=== PATIENT | female | born 1955 | race Caucasian/White ===

== ENCOUNTER 2018-04-15 12:40 | Emergency (ER) | payer MEDICARE, MEDICAID ==
[2018-04-15 12:57] VITALS: BP 153/71
[2018-04-15] MEDS ORDERED: Albuterol/Ipratropium NEB.SOL* Albuterol 2.5 MG/Ipratropium 0.5 MG 3 ML INH ONE (13:15)
--- NOTE | 2018-04-15 13:55 | UC ---
UC General HPI - HPI Summary HPI Summary: Pt with left ear pain, sore throat, cough and wheeze x 5 days. no fevers + chills. Pt has MDI adhas used with little improvement No fever. No analgesia taken. pt has used her MDI a few times with short term relief. No sick contacts No change in appetite no n/v/d. Pt reports some chest discomfort with coughing only. No cp, sob otherwise. Pt's medication list reviewed - History of Current Complaint Chief Complaint: UCRespiratory Stated Complaint: SORE THROAT Time Seen by Provider: 04/15/18 12:56 Hx Obtained From: Patient Hx Last Menstrual Period: NA Onset/Duration: Gradual Onset Pain Intensity: 6 - Allergy/Home Medications Allergies/Adverse Reactions: Allergies Allergy/AdvReac Type Severity Reaction Status Date / Time nitrofurantoin Allergy Unknown Unknown Verified 04/15/18 13:04 [From Macrodantin] Reaction Details aspirin Allergy Hives Verified 04/15/18 13:04 cephalexin Allergy Hives Verified 04/15/18 13:04 clavulanic acid Allergy Hives Verified 04/15/18 13:04 [From Augmentin] erythromycin base Allergy SOB, HIVES Verified 04/15/18 13:04 ibuprofen Allergy Hives Verified 04/15/18 13:04 pregabalin [From Lyrica] Allergy Hives Verified 04/15/18 13:04 Sulfa (Sulfonamide Allergy Hives Verified 04/15/18 13:04 Antibiotics) triamcinolone Allergy Unknown Verified 04/15/18 13:04 Reaction Details CARROTS, CELERY, APPLES Allergy Mild Hives Uncoded 04/15/18 13:04 DIET SWEETNERS Allergy TONGUE Uncoded 04/15/18 13:04 NUMB, HEADACHE Home Medications: Home Medications Acetaminophen TAB* [Tylenol TAB*] 650 mg PO Q8H PRN 04/15/18 [History Confirmed 04/15/18] Albuterol HFA INHALER* [Ventolin HFA Inhaler*] 2 puff INH Q4H PRN 04/15/18 [ History Confirmed 04/15/18] Atorvastatin* [Lipitor*] 80 mg PO DAILY 04/15/18 [History Confirmed 04/15/18] Azelastine 0.15% NASAL(NF) [Astepro 0.15% NASAL (NF)] 1 spray ALT NARE BID 04/15 [History Confirmed 04/15/18] Cetirizine* [ZyrTEC 10 MG TAB*] 10 mg PO DAILY 04/15/18 [History Confirmed 04/15] Ciclopirox/Urea/Camph/Men/Euc [Ciclopirox 8% Treatment Kit] 1 applic TP SEE INSTRUCTIONS 04/15/18 [History Confirmed 04/15/18] Clobetasol 0.05% OINT* 1 applic TOPICAL SEE INSTRUCTIONS 04/15/18 [History Confirmed 04/15/18] Esomeprazole(NF) [NexIUM(NF)] 40 mg PO DAILY 04/15/18 [History Confirmed ] Fluticasone-Salmeterol 250-50* [Advair Diskus 250-50*] 1 puff INH BID 04/15/18 [ History Confirmed 04/15/18] Furosemide TAB* [Lasix TAB*] 80 mg PO DAILY 04/15/18 [History Confirmed 04/15/18 ] Insulin GLARGINE(*) [Lantus(*)] 40 units SUBCUT Q12H 04/15/18 [History Confirmed 04/15/18] Losartan TAB* [Cozaar TAB*] 25 mg PO DAILY 04/15/18 [History Confirmed 04/15/18] Morphine Sulfate [Morphine Sulfate ER] 30 mg PO BID 04/15/18 [History Confirmed 04/15/18] Nystatin CREAM* 1 applic TOPICAL BID 04/15/18 [History Confirmed 04/15/18] Nystatin TOP POWDER* 1 applic TOPICAL BID 04/15/18 [History Confirmed 04/15/18] Oxybutynin XL TAB* [Ditropan XL TAB*] 10 mg PO BEDTIME 04/15/18 [History Confirmed 04/15/18] Pregabalin CAP(*) [Lyrica CAP(*)] 50 mg PO DAILY 04/15/18 [History Confirmed 05/25] Ranitidine TAB (NF) [Zantac TAB (NF)] 300 mg PO BEDTIME 04/15/18 [History Confirmed 04/15/18] SitaGLIPtin (NF) [Januvia (NF)] 100 mg PO DAILY 04/15/18 [History Confirmed 05/25] Zolpidem TAB* [Ambien TAB*] 5 mg PO BEDTIME 04/15/18 [History Confirmed 04/15/18 ] amLODIPine TAB* [Norvasc 5 mg TAB*] 10 mg PO DAILY 04/15/18 [History Confirmed 04/15/18] cloNIDine TAB* [Catapres 0.1 MG TAB*] 0.1 mg PO TID 04/15/18 [History Confirmed 04/15/18] metFORMIN* [Glucophage 500 MG TAB *] 1,000 mg PO BID 04/15/18 [History Confirmed 04/15/18] oxyCODONE TAB* [Roxycodone TAB 5 mg*] 5 mg PO Q8H 04/15/18 [History Confirmed ] oxyCODONE/Acetamin 5/325 MG* [Percocet 5/325 TAB*] 1 tab PO Q8H PRN 04/15/18 [ History Confirmed 04/15/18] tiZANidine TAB* [Zanaflex TAB*] 4 - 8 mg PO TID 04/15/18 [History Confirmed 05/25] PMH/Surg Hx/FS Hx/Imm Hx Previously Healthy: Yes Endocrine History: Diabetes Cardiovascular History: Hypertension Respiratory History: COPD Other History Of: Negative For: HIV, Hepatitis B, Hepatitis C - Surgical History Surgical History: Yes Surgery Procedure, Year, and Place: BILATERAL TUBAL LIGATION,. CHOLECYSTECTOMY. APPENDECTOMY. BACK SURGURY X 6 (with implant), [facility]. LEFT HIP IMPLANT. RIGHT HAND CYSTECTOMY. HYSTERECTOMY, [facility] - Family History Known Family History: Positive: Cardiac Disease, Hypertension, Diabetes, Other - charcot betito tooth Family History: charcot betito tooth - Social History Occupation: Unemployed Lives: With Family Alcohol Use: None Substance Use Type: None Smoking Status (MU): Former Smoker Type: Cigarettes Amount Used/How Often: 1 1/2 PPD Length of Time of Smoking/Using Tobacco: 5 Years When Did the Patient Quit Smoking/Using Tobacco: 2010 Household Exposure Type: Cigarettes - Immunization History Most Recent Influenza Vaccination: 2013 Vaccination Up to Date: Yes Review of Systems Constitutional: Negative ENT: Sore Throat, Ear Ache, Sinus Congestion, Other - TORRES MARTINEZ Respiratory: Cough All Other Systems Reviewed And Are Negative: Yes Physical Exam - Summary Physical Exam Summary: Vital Signs Reviewed: Yes A+Ox3, no distress Eyes: Conjunctiva Clear, RENETTA. EOM intact and full ENT: Pt with TORRES MARTINEZ - Pt with left canal with erythema, edema no drainage TM x 2 clear no fluid TM x 2 clear, mmoist, uvula midline, no exudate, no erythema Neck: Positive: Supple Respiratory: Positive: No respiratory distress, No accessory muscle use scattered wheeze no increased WOB Cardiovascular: RRR nl s1, s2 no m/r CBT <2 sec abd soft + BS nt/nd no guarding, no distension Musculoskeletal Exam: BANKS x 4 without difficulty Strength Intact, ROM Intact Neurological: Positive: Alert, + sensation throughout Psychological: Positive: Normal Response To Family Skin: Positive: no rash, no ecchymosis Triage Information Reviewed: Yes Vital Signs: Initial Vital Signs Temp 97.6 F 04/15/18 12:50 Pulse 85 04/15/18 12:50 Resp 20 04/15/18 12:50 BP 153/71 04/15/18 12:50 Pulse Ox 96 04/15/18 12:50 Re-Evaluation - Re-Evaluation First Eval Change: Improved - wheezing resolved pt states feels better doxy neb cortipsorin return precaution secretion precaution pt comfortable and in agreement with plan pt also with elevated BP - existing dx Course/Dx - Course Course Of Treatment: Pt with wheeze, coarse cough, left ear pain and sore throat. VSS. strep neg. will give neb and reassess. likely doxy - given cough, sputum, smoking, COPD history. will hold CXR pending re-eval after neb - Differential Dx - Multi-Symptom Provider Diagnoses: left otitis externa. bronchtis Discharge - Sign-Out/Discharge Documenting (check all that apply): Patient Departure - Discharge Plan Condition: Stable Disposition: HOME Prescriptions: Ciproflox/Dexameth OTIC.SUSP* [Ciprodex OTIC.SUSP*] 2 drop .SEE ORDER Q6HR #1 btl DOXYcycline CAP(*) [DOXYcycline 100MG CAP(*)] 100 mg PO BID #20 cap predniSONE TAB* [Deltasone TAB*] 50 mg PO DAILY #5 tab Patient Education Materials: Otitis Externa (ED), Acute Bronchitis (ED) Referrals: Chris Aguilar MD [Primary Care Provider] - Additional Instructions: -Take antibiotics exactly as prescribed until gone -Use your albuterol puffer - 2 puffs ever 4 hours for the next 3 days - then as needed - These infections are spread by oral secretions. Do not share eating or drinking utensils. Frequent hand washing is important. Clean items that may get your secretions on them such as cell phones, ipads, computer mouse, television remotes. Once you have been on antbiotics for 2 days, change your pillowcase and your toothbrush - take prednisone as prescribed until gone - use ear drops as prescribed -Stay well hydrated - avoid excess caffeine and all alcohol - eat regular, healthy meals -Contact your doctor to arrange a follow-up appointment this week. Call your doctor, return here or go to the emergency department with any questions or concerns - Billing Disposition and Condition Condition: STABLE Disposition: Home
== END 2018-04-15 14:01 | disposition home or self-care (01) ==
LOC: UCCORT 12:40
DX: H60.92 Unspecified otitis externa, left ear (principal); J40 Bronchitis, not specified as acute or chronic; E11.9 Type 2 diabetes mellitus without complications; Z79.4 Long term (current) use of insulin; Z79.84 Long term (current) use of oral hypoglycemic drugs; I10 Essential (primary) hypertension; J44.9 Chronic obstructive pulmonary disease, unspecified; Z88.6 Allergy status to analgesic agent; Z88.2 Allergy status to sulfonamides; Z88.8 Allergy status to other drugs, medicaments and biological substances; Z88.3 Allergy status to other anti-infective agents; Z87.891 Personal history of nicotine dependence
CPT/HCPCS: 87651; 99212; A9270-GY; G0463

== ENCOUNTER 2018-12-10 08:26 | Emergency (ER) | payer MEDICARE, MEDICAID ==
[2018-12-10 09:12] LABS: Influenza A Molecular NEGATIVE (Negative); Influenza B Molecular NEGATIVE (Negative)
[2018-12-10] MEDS ORDERED: Ipratropium 0.5MG/2.5ML NEB* 0.5 MG/2.5 ML NEB.SOLN INH ONE (09:57)
[2018-12-10] MEDS ORDERED: predniSONE TAB* 20 MG PO ONE (09:57)
[2018-12-10] MEDS ORDERED: Albuterol 2.5 MG/3 ML NEB.SOL* (0.083%) INH ONE (09:57)
--- NOTE | 2018-12-10 10:56 | UC ---
Shortness of Breath HPI - HPI Summary HPI Summary: PATIENT WITH A HISTORY OF INTERSTITIAL LUNG DISEASE, COPD AND ASTHMA ARRIVES COMPLAINING OF SHORTNESS OF BREATH AND WHEEZE THAT HAS WORSENED OVERNIGHT. SUBJECTIVE FEVER AND CHILLS. USE HER NEBULIZER MACHINE WITH SOME MODEST IMPROVEMENT IN SYMPTOMS. - History of Current Complaint Chief Complaint: UCRespiratory Stated Complaint: SOB Time Seen by Provider: 12/10/18 08:54 Hx Obtained From: Patient Hx Last Menstrual Period: NA Onset/Duration: Gradual Onset, Lasting Days - 1 DAY, Still Present Timing: Constant Current Severity: Moderate Dyspnea At: Exertion Aggrevating Factors: Nothing Alleviating Factors: Bronchodilators Associated Signs & Symptoms: Positive: Cough (Nonproductive), Wheezing, Chills - Allergy/Home Medications Allergies/Adverse Reactions: Allergies Allergy/AdvReac Type Severity Reaction Status Date / Time nitrofurantoin Allergy Unknown Unknown Verified 12/10/18 08:45 [From Macrodantin] Reaction Details aspirin Allergy Hives Verified 12/10/18 08:45 cephalexin Allergy Hives Verified 12/10/18 08:45 clavulanic acid Allergy Hives Verified 12/10/18 08:45 [From Augmentin] erythromycin base Allergy SOB, HIVES Verified 12/10/18 08:45 ibuprofen Allergy Hives Verified 12/10/18 08:45 pregabalin [From Lyrica] Allergy Hives Verified 12/10/18 08:45 Sulfa (Sulfonamide Allergy Hives Verified 12/10/18 08:45 Antibiotics) triamcinolone Allergy Unknown Verified 12/10/18 08:45 Reaction Details CARROTS, CELERY, APPLES Allergy Mild Hives Uncoded 12/10/18 08:45 DIET SWEETNERS Allergy TONGUE Uncoded 07/01/18 11:22 NUMB, HEADACHE Home Medications: Home Medications Docusate Sodium [Colace] 100 mg PO DAILY WITH MEAL 12/10/18 [History Confirmed 12/10/18] Enalapril TAB* [Vasotec TAB*] 10 mg PO DAILY 12/10/18 [History Confirmed ] Esomeprazole Magnesium [Nexium 24Hr] 20 mg PO DAILY WITH MEAL 12/10/18 [History Confirmed 12/10/18] Insulin Glargine,Hum.rec.anlog [Basaglar Kwikpen U-100] 100 unit SQ DAILY WITH MEAL 12/10/18 [History Confirmed 12/10/18] Magnesium 30 mg PO DAILY WITH MEAL 12/10/18 [History Confirmed 12/10/18] Morphine TAB (NF) [Morphine 30 MG TAB (NF)] 30 mg PO Q6H PRN 12/10/18 [History Confirmed 12/10/18] Oxycodone HCl/Acetaminophen [Oxycodon-Acetaminophen 2.5-325] 1 tab PO DAILY WITH MEAL 12/10/18 [History Confirmed 12/10/18] Umeclidinium 62.5 MDI(NF) [Incruse ELLIPTA MDI (NF)] 1 inh INH DAILY WITH MEAL 12/10/18 [History Confirmed 12/10/18] diphenhydrAMINE HCl [Benadryl Allergy] 25 mg PO DAILY WITH MEAL 12/10/18 [ History Confirmed 12/10/18] PMH/Surg Hx/FS Hx/Imm Hx - Additional Past Medical History Additional PMH: DONAL, [id number] Endocrine History: Diabetes Cardiovascular History: Hypertension Respiratory History: COPD, Asthma Other Respiratory History: INTERSTITIAL LUNG DISEASE Other History Of: Negative For: HIV, Hepatitis B, Hepatitis C - Surgical History Surgical History: Yes Surgery Procedure, Year, and Place: BILATERAL TUBAL LIGATION,. CHOLECYSTECTOMY. APPENDECTOMY. BACK SURGURY X 6 (with implant), [facility]. LEFT HIP IMPLANT. RIGHT HAND CYSTECTOMY. HYSTERECTOMY, [facility] - Family History Known Family History: Positive: Cardiac Disease, Hypertension, Diabetes, Other - charcot betito tooth Family History: charcot betito tooth - Social History Alcohol Use: None Substance Use Type: None Smoking Status (MU): Former Smoker Type: Cigarettes Amount Used/How Often: 1 1/2 PPD Length of Time of Smoking/Using Tobacco: 5 Years When Did the Patient Quit Smoking/Using Tobacco: 2010 Household Exposure Type: Cigarettes - Immunization History Most Recent Influenza Vaccination: 2013 Vaccination Up to Date: Yes Review of Systems All Other Systems Reviewed And Are Negative: Yes Constitutional: Positive: Fever, Chills, Fatigue Respiratory: Positive: Shortness Of Breath, Cough, Other - WHEEZE Cardiovascular: Positive: Negative Gastrointestinal: Positive: Negative Physical Exam Triage Information Reviewed: Yes Appearance: Well-Appearing, No Pain Distress, Well-Nourished Vital Signs: Initial Vital Signs Temp 98.9 F 12/10/18 08:32 Pulse 109 12/10/18 08:32 Resp 22 12/10/18 08:32 BP 191/85 12/10/18 08:32 Pulse Ox 95 12/10/18 08:32 Laboratory Tests 12/10/18 09:00 Influenza A (Rapid) Negative Influenza B (Rapid) Negative Vital Signs Reviewed: Yes Eyes: Positive: Conjunctiva Clear ENT: Positive: Hearing grossly normal, Pharynx normal, TMs normal Neck: Positive: Supple, Nontender, No Lymphadenopathy Respiratory Exam: Normal Cardiovascular: Positive: Tachycardia Abdomen Description: Positive: Soft Musculoskeletal: Positive: No Edema Neurological: Positive: Alert Psychological: Positive: Age Appropriate Behavior Skin: Negative: Rashes Diagnostics - Radiology CXR Radiology Interpretation Completed By: Radiologist Summary of Radiographic Findings: DIFFUSE PROMINENCE OF THE INTERSTITIAL MARKINGS, UNCHANGED SUGGESTIVE OF CHRONIC INTERSTITIAL LUNG DISEASE LESS LIKELY INTERSTITIAL PULMONARY EDEMA. Re-Evaluation - Re-Evaluation First Eval Re-Evaluation Time: 10:35 - FEELS BETTER AFTER 60MG PREDNISONE AND ALB/IPR NEB Change: Improved Shortness of Breath Dx - Differential Dx/Diagnosis Provider Diagnosis: COPD exacerbation Discharge - Sign-Out/Discharge Documenting (check all that apply): Patient Departure All imaging exams completed and their final reports reviewed: Yes - Discharge Plan Condition: Stable Disposition: HOME Prescriptions: Azithromycin 500 mg PO DAILY #5 tab predniSONE TAB* [Deltasone TAB*] 50 mg PO DAILY #4 tab Patient Education Materials: COPD (Chronic Obstructive Pulmonary Disease) (ED) Referrals: Chris Aguilar MD [Primary Care Provider] - If Needed Additional Instructions: CHEST X-RAY SHOWS CHANGES CONSISTENT WITH INTERSTITIAL LUNG DISEASE BUT IS STABLE FROM PREVIOUS. NO ACUTE DISEASE. FLU SWAB NEGATIVE. YOU FELT BETTER AFTER A DUONEB TREATMENT AND 60 MG OF PREDNISONE. CONTINUE TO USE YOUR NEBULIZER AT HOME PRESCRIBED. WILL CONTINUE PREDNISONE FOR ANOTHER 4 DAYS. AZITHROMYCIN TO COVER FOR ANY INFECTIOUS COMPONENT. SEEK FOLLOW-UP IF YOU'RE NOT IMPROVING EXPECTED. GO TO THE ER WITHOUT FAIL IF YOU DEVELOP WORSENING SHORTNESS OF BREATH, FEVER, CHEST PAIN, NAUSEA, SWEATS, DIZZINESS OR ANY OTHER CONCERNING SYMPTOMS. - Billing Disposition and Condition Condition: STABLE Disposition: Home
[2018-12-10 11:15] VITALS: BP 150/62
== END 2018-12-10 11:14 | disposition home or self-care (01) ==
LOC: UCEAST 08:26
DX: J44.1 Chronic obstructive pulmonary disease with (acute) exacerbation (principal); E11.9 Type 2 diabetes mellitus without complications; I10 Essential (primary) hypertension; J84.9 Interstitial pulmonary disease, unspecified; Z88.1 Allergy status to other antibiotic agents; Z88.8 Allergy status to other drugs, medicaments and biological substances; Z87.891 Personal history of nicotine dependence; Z88.2 Allergy status to sulfonamides; Z91.02 Food additives allergy status; Z79.4 Long term (current) use of insulin; Z88.0 Allergy status to penicillin; Z79.899 Other long term (current) drug therapy
CPT/HCPCS: 71046; 99213; G0463; J7512

== ENCOUNTER 2019-01-16 10:43 | Emergency (ER) | payer MEDICARE, MEDICAID ==
--- NOTE | 2019-01-16 10:58 | ED ---
Lower Extremity - HPI Summary HPI Summary: This patient is a 63 year old female presenting to [facility] with a chief complaint of left leg pain since 3 days ago. Patient states that she twisted it 3 days ago. The pain starts at the knee and radiates down the left leg. The pain is rated 10/10 in severity. Symptoms aggravated by nothing. Symptoms alleviated by nothing. Patient additionally reports increased SOB since this morning. - History of Current Complaint Chief Complaint: EDShortnessOfBreath Stated Complaint: PROBLEM WITH KNEE AND SOB PER PT Time Seen by Provider: 01/16/19 10:50 Hx Obtained From: Patient Hx Last Menstrual Period: NA Mechanism Of Injury: Twisted Onset/Duration: Days Severity Currently: Severe Pain Intensity: 10 Pain Scale Used: 0-10 Numeric Timing: Constant Location: Is Discrete @ - left lower leg Associated Signs And Symptoms: Positive: Other - SOB Aggravating Factor(s): Nothing Alleviating Factor(s): Nothing - Allergies/Home Medications Allergies/Adverse Reactions: Allergies Allergy/AdvReac Type Severity Reaction Status Date / Time nitrofurantoin Allergy Unknown Unknown Verified 01/16/19 10:48 [From Macrodantin] Reaction Details aspirin Allergy Hives Verified 01/16/19 10:48 cephalexin Allergy Hives Verified 01/16/19 10:48 clavulanic acid Allergy Hives Verified 01/16/19 10:48 [From Augmentin] erythromycin base Allergy SOB, HIVES Verified 01/16/19 10:48 ibuprofen Allergy Hives Verified 01/16/19 10:48 pregabalin [From Lyrica] Allergy Hives Verified 01/16/19 10:48 Sulfa (Sulfonamide Allergy Hives Verified 01/16/19 10:48 Antibiotics) triamcinolone Allergy Unknown Verified 01/16/19 10:48 Reaction Details CARROTS, CELERY, APPLES Allergy Mild Hives Uncoded 12/10/18 08:45 DIET SWEETNERS Allergy TONGUE Uncoded 07/01/18 11:22 NUMB, HEADACHE Home Medications: Home Medications Albuterol 2.5MG/3ML (0.083%)* [Ventolin 2.5 MG/3 ML NEB.ALEXANDRA*] 2.5 mg INH Q4H PRN 01/16/19 [History Confirmed 01/16/19] Albuterol HFA INHALER* [Ventolin HFA Inhaler*] 1 puff INH Q4H PRN 01/16/19 [ History Confirmed 01/16/19] Alpha Lipoic Acid 300 mg PO TID 01/16/19 [History Confirmed 01/16/19] Amlodipine Besylate [Norvasc] 5 mg PO DAILY 01/16/19 [History Confirmed 01/16/19 ] Ascorbate Calcium [Calcium Ascorbate] 1,000 mg PO DAILY 01/16/19 [History Confirmed 01/16/19] Atorvastatin* [Lipitor*] 80 mg PO QPM 01/16/19 [History Confirmed 01/16/19] Azelastine 0.15% NASAL(NF) [Astepro 0.15% NASAL (NF)] 1 spray NASAL BID [History Confirmed 01/16/19] Calcium Carbonate [Super Calcium] 600 mg PO TID 01/16/19 [History Confirmed 08/25] Cetirizine HCl [Zyrtec] 10 mg PO DAILY 01/16/19 [History Confirmed 01/16/19] Ciclopirox/Urea/Camph/Men/Euc [Ciclodan Kit] 1 kit EX BID 01/16/19 [History Confirmed 01/16/19] Docusate Sodium [Colace] 100 mg PO BID 01/16/19 [History Confirmed 01/16/19] Enalapril Maleate [Vasotec] 10 mg PO DAILY 01/16/19 [History Confirmed 01/16/19] Esomeprazole Magnesium [Nexium] 40 mg PO DAILY 01/16/19 [History Confirmed 01/16] Fluticasone-Salmeterol 250-50* [Advair Diskus 250-50*] 1 puff INH BID 01/16/19 [ History Confirmed 01/16/19] Furosemide [Lasix] 40 mg PO BID 01/16/19 [History Confirmed 01/16/19] Insulin Glargine,Hum.rec.anlog [Basaglar Kwikpen U-100] 42 unit SQ BID 01/16/19 [History Confirmed 01/16/19] L. Acidophilus/Lactobac Spor [Acidophilus/l-Sporogenes] 1 tab PO BID 01/16/19 [ History Confirmed 01/16/19] Losartan Potassium [Cozaar] 25 mg PO DAILY 01/16/19 [History Confirmed 01/16/19] Magnesium Oxide 400 mg PO TID 01/16/19 [History Confirmed 01/16/19] Metformin HCl 500 mg PO QID 01/16/19 [History Confirmed 01/16/19] Metoprolol Succinate [Metoprolol Succinate ER] 125 mg PO DAILY 01/16/19 [ History Confirmed 01/16/19] Morphine Sulfate [Morphine Sulfate ER] 30 mg PO BID 01/16/19 [History Confirmed 01/16/19] Multivitamin [Multivitamins] 1 each PO DAILY 01/16/19 [History Confirmed ] Nystatin [Nystatin Foreign] 1 pow TOPICAL BID 01/16/19 [History Confirmed ] Oxybutynin XL TAB* [Ditropan XL TAB*] 10 mg PO QPM 01/16/19 [History Confirmed 01/16/19] Oxycodone HCl 5 mg PO TID 01/16/19 [History Confirmed 01/16/19] Oxycodone HCl/Acetaminophen [Percocet 5-325 mg Tablet] 1 each PO TID 01/16/19 [ History Confirmed 01/16/19] Pregabalin [Lyrica] 50 mg PO BEDTIME 01/16/19 [History Confirmed 01/16/19] Tizanidine HCl [Zanaflex] 8 mg PO TID 01/16/19 [History Confirmed 01/16/19] Umeclidinium [place] [Incruse Ellipta] 62.5 mcg IN BEDTIME 01/16/19 [History Confirmed 01/16/19] diPHENhydraMINE PO* [Benadryl PO 25 MG TAB*] 25 mg PO Q6H PRN 01/16/19 [History Confirmed 01/16/19] metOLazone [Metolazone] 5 mg PO DAILY PRN 01/16/19 [History Confirmed 01/16/19] raNITIdine HCl [Zantac] 300 mg PO BEDTIME 01/16/19 [History Confirmed 01/16/19] PMH/Surg Hx/FS Hx/Imm Hx Previously Healthy: No Endocrine/Hematology History: Reports: Hx Diabetes Denies: Hx Systemic Lupus Erythematosus, Hx Thyroid Disease Cardiovascular History: Reports: Hx Coronary Artery Disease - CHOLESTEROL ON MEDS, Hx Hypercholesterolemia, Hx Hypertension Denies: Hx Congestive Heart Failure, Hx Deep Vein Thrombosis, Hx Myocardial Infarction, Hx Pacemaker/ICD Respiratory History: Reports: Hx Asthma, Hx Chronic Obstructive Pulmonary Disease (COPD), Hx Sleep Apnea - evaluation for 10/2013, Other Respiratory Problems/Disorders - ON OXYGEN AT NIGHT AT 2 LITER VIA NASAL CANNULA Denies: Hx Lung Cancer GI History: Denies: Hx Gall Bladder Disease, Hx Gastrointestinal Bleed, Hx Ulcer, Hx Urosepsis History: Denies: Hx Dialysis, Hx Kidney Stones, Hx Renal Disease Musculoskeletal History: Reports: Hx Arthritis, Hx Rheumatoid Arthritis, Other Musculoskeletal History - LEFT HIP IMPLANT Sensory History: Reports: Hx Cataracts - BILATERAL - MINOR, Hx Contacts or Glasses - GLASSES, Hx Hearing Aid - BILATERAL HEARING AIDES, 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 CHOLECYSTECTOMY. APPENDECTOMY. BACK SURGURY X 6 (with implant), [facility]. LEFT HIP IMPLANT. RIGHT HAND CYSTECTOMY. HYSTERECTOMY, [facility] Hx Anesthesia Reactions: No Infectious Disease History: No Infectious Disease History: Reports: Hx Shingles Denies: Hx Clostridium Difficile, Hx Hepatitis, Hx Human Immunodeficiency Virus (HIV), Hx of Known/Suspected MRSA, Hx Tuberculosis, Hx Known/Suspected VRE , Hx Known/Suspected VRSA, History Other Infectious Disease, Traveled Outside the [place] in Last 30 Days - Family History Known Family History: Positive: Cardiac Disease, Hypertension, Diabetes, Other - charcot karlo tooth Family History: charcot karlo tooth - Social History Alcohol Use: None Hx Substance Use: No Substance Use Type: Reports: None Hx Tobacco Use: Yes Smoking Status (MU): Former Smoker Type: Cigarettes Amount Used/How Often: 1 1/2 PPD Length of Time of Smoking/Using Tobacco: 5 Years Review of Systems Negative: Fever Positive: Shortness Of Breath Positive: Other - left leg pain All Other Systems Reviewed And Are Negative: Yes Physical Exam - Summary Physical Exam Summary: Appearance: The patient is well-nourished in no acute distress and in no acute pain. Skin: The skin is warm and dry and skin color reflects adequate perfusion. HEENT: The head is normocephalic and atraumatic. The pupils are equal and reactive. The conjunctivae are clear and without drainage. Nares are patent and without drainage. Mouth reveals moist mucous membranes and the throat is without erythema and exudate. The external ears are intact. The ear canals are patent and without drainage. The tympanic membranes are intact. Neck: The neck is supple with full range of motion and non-tender. There are no carotid bruits. There is no neck vein distension. Respiratory: Chest is non-tender. Lungs are clear to auscultation and breath sounds are symmetrical and equal. Cardiovascular: Heart is regular rate and rhythm. There is no murmur or rub auscultated. Pulses are symmetrical and equal. Abdomen: The abdomen is soft and non-tender. There are normal bowel sounds heard in all four quadrants and there is no organomegaly palpated. Musculoskeletal: There is no back tenderness noted. Left lower extremity mildly erythematous below knee. Tender to any ROM Neurological: Patient is alert and oriented to person, place and time. The patient has symmetrical motor strength in all four extremities. Cranial nerves are grossly intact. Deep tendon reflexes are symmetrical and equal in all four extremities. Psychiatric: The patient has an appropriate affect and does not exhibit any anxiety or depression. Triage Information Reviewed: Yes Vital Signs On Initial Exam: Initial Vitals Temp Pulse Resp BP Pulse Ox 99.0 F 120 20 166/95 94 01/16/19 10:44 01/16/19 10:44 01/16/19 10:44 01/16/19 10:44 01/16/19 10:44 Vital Signs Reviewed: Yes Diagnostics - Vital Signs Vital Signs Temp Pulse Resp BP Pulse Ox 01/16/19 10:44 99.0 F 120 20 166/95 94 - Laboratory Result Diagrams: 01/16/19 11:08 01/16/19 11:08 Lab Statement: Any lab studies that have been ordered have been reviewed, and results considered in the medical decision making process. - Radiology CXR Radiology Interpretation Completed By: Radiologist Summary of Radiographic Findings: CXR reveals, per radiologist, IMPRESSION: INTERVAL APPEARANCE OF INFILTRATE OVERLYING THE RIGHT MIDDLE LOBE CONSISTENT WITH PNEUMONIA. A FOLLOW-UP CHEST X-RAY AFTER AN APPROPRIATE COURSE OF THERAPY IS ADVISED TO CONFIRM RESOLUTION. ED physician has reviewed this radiology report. Knee XR Radiology Interpretation Completed By: Radiologist Summary of Radiographic Findings: Knee XR reveals, per radiologist, IMPRESSION: Degenerative changes with small joint effusion as described above. If the patient's symptoms persist, follow-up imaging is recommended. ED physician has reviewed this radiology report. - EKG 1101 Cardiac Rate: Tachycardia EKG Rhythm: Sinus Tachycardia - 108 BPM Summary of EKG Findings: An EKG, taken 1101, reveals Sinus Tachycardia (108 BPM) , normal ST, no ectopy, no STEMI. Unchanged from 11/07/15 Lower Extremity Course/Dx - Course Course Of Treatment: Ms. Bronson presented with 2 concerns. #1 a few days ago she twisted her knee and has had continued pain with any attempt to weight- bear. #2 she's been feeling short of breath for the last several days also. She denies any URI symptoms and states that it is exacerbated by exertion and that she is able to sleep at night but she uses a CPAP. She was nontoxic in appearance and her vitals were stable aside from tachycardia on presentation. She has a history of CHF so fluids were held at the beginning of her workup although clinically her lungs sounded clear aside from crackles on the right. Chest x-ray was read by radiology as a probable right-sided infiltrate that is early. There was no sign of CHF on x-ray and her BNP was normal. She was given a liter of fluids and this resolved her tachycardia. Her labs were reasonable aside from a mildly elevated lactic acid which the fluid should also treat. She has some effusion in her left knee on x-ray. She felt that she could go home with antibiotics although she has had trouble with pneumonia in the past and will follow up if she worsens. We don't really have a knee immobilizer that will fit her and an Tong wrap was placed to help with her comfort. I recommended follow-up this week with her PCP for both problems. - Diagnoses Provider Diagnoses: Pneumonia, Knee injury Discharge - Sign-Out/Discharge Documenting (check all that apply): Patient Departure Patient Received Moderate/Deep Sedation with Procedure: No - Discharge Plan Condition: Stable Disposition: HOME Prescriptions: Levofloxacin TAB* [Levaquin TAB*] 750 mg PO DAILY #10 tab Patient Education Materials: Knee Pain (ED), Pneumonia (ED) Referrals: Chris Aguilar MD [Primary Care Provider] - 1 Week Additional Instructions: Follow up with PCP this week. Return to the ED for any new or worsening symptoms. - Billing Disposition and Condition Condition: STABLE Disposition: Home - Attestation Statements Document Initiated by Iesha: Yes Documenting Scribe: Janneth Marie Provider For Whom Iesha is Documenting (Include Credential): Noel Page MD Scribe Attestation: Janneth Ames, scribed for Noel Page MD on 01/16/19 at 1701. Scribe Documentation Reviewed: Yes Provider Attestation: The documentation as recorded by the Janneth omalley accurately reflects the service I personally performed and the decisions made by me, Noel Page MD Status of Scribe Document: Viewed
[2019-01-16 11:31] LABS: ABS Eosinophils 0.2 10^3/ul (0-0.6); ABS Lymphocytes 1.8 10^3/ul (1.0-4.8); ABS Monocytes 0.6 10^3/ul (0-0.8); ABS Neutrophils 7.9 10^3/ul (1.5-7.7); Eosinophil % 2.2 %; Hematocrit 36 % (35-47); Hemoglobin 11.6 g/dL (12.0-16.0); Lymphocyte % 17.1 %; Mean Corpuscular HGB Conc 32 g/dL (31-36); Mean Corpuscular Hemoglobin 25 pg (27-31); Mean Corpuscular Volume 77 fL (80-97); Mean Platelet Volume 10.2 fL (7.4-10.4); Nucleated Red Blood Cells % 0.1; Platelet Count 158 10^3/uL (150-450); Red Blood Count 4.63 10^6 /uL (3.70-4.87); Red Cell Distribution Width 19 % (10.5-15); White Blood Count 10.5 10^3/uL (3.5-10.8)
[2019-01-16 11:50] LABS: Albumin/Globulin Ratio 1.4 (1-3); BUN/Creatinine Ratio 13.8 (8-20); C Reactive Protein 11.95 mg/L (<8.01); Calcium 9.5 mg/dL (8.6-10.3); EGFR African American 73.3 (>60); EGFR Non-African American 60.5 (>60); Globulin 2.9 g/dL (2-4); Potassium 3.9 mmol/L (3.5-5.0); Total Bilirubin 0.7 mg/dL (0.2-1.0); Total Protein 6.9 g/dL (6.4-8.9)
[2019-01-16 11:51] LABS: Troponin I 0.01 ng/mL (<0.04)
[2019-01-16 11:57] LABS: INR 0.97 (0.82-1.09)
[2019-01-16] MEDS ORDERED: NS 0.9% 1000 ML** 1,000 ML IV ONE (12:03)
[2019-01-16 15:10] VITALS: BP 152/88
== END 2019-01-16 15:16 | disposition home or self-care (01) ==
LOC: ED 10:43
DX: S89.92XA Unspecified injury of left lower leg, initial encounter (principal); X58.XXXA Exposure to other specified factors, initial encounter; Y92.9 Unspecified place or not applicable; J18.9 Pneumonia, unspecified organism; E11.9 Type 2 diabetes mellitus without complications; I25.10 Atherosclerotic heart disease of native coronary artery without angina pectoris; E78.00 Pure hypercholesterolemia, unspecified; I10 Essential (primary) hypertension; F32.9 Major depressive disorder, single episode, unspecified; F41.9 Anxiety disorder, unspecified; Z88.2 Allergy status to sulfonamides; Z87.891 Personal history of nicotine dependence
CPT/HCPCS: 36415; 71046; 80053; 83605; 83880; 84484; 85025; 85610; 86140; 87040; 93005; 96374; 99283

== ENCOUNTER 2019-06-16 12:37 | Emergency (ER) | payer MEDICARE, MEDICAID ==
[2019-06-16 13:22] VITALS: BP 186/67
--- NOTE | 2019-06-16 13:58 | UC ---
Throat Pain/Nasal Matthias HPI - HPI Summary HPI Summary: Pt presents with c/o cough, nasal congestion, fever, chills, sinus pressure and pain X 2 weeks. - History of Current Complaint Chief Complaint: UCRespiratory Stated Complaint: ST,SINUS CONGESTION Time Seen by Provider: 06/16/19 13:52 Hx Obtained From: Patient Hx Last Menstrual Period: NA ?: No Onset/Duration: Gradual Onset, Lasting Weeks, Still Present Severity: Moderate Pain Intensity: 7 Cough: Nonproductive Associated Signs & Symptoms: Positive: Sinus Discomfort, Fever - chills - Epiglottits Risk Factors Epiglottis Risk Factors: Negative - Allergies/Home Medications Allergies/Adverse Reactions: Allergies Allergy/AdvReac Type Severity Reaction Status Date / Time nitrofurantoin Allergy Unknown Unknown Verified 06/16/19 13:10 [From Macrodantin] Reaction Details aspirin Allergy Hives Verified 06/16/19 13:10 cephalexin Allergy Hives Verified 06/16/19 13:10 clavulanic acid Allergy Hives Verified 06/16/19 13:10 [From Augmentin] erythromycin base Allergy SOB, HIVES Verified 06/16/19 13:10 ibuprofen Allergy Hives Verified 06/16/19 13:10 pregabalin [From Lyrica] Allergy See Comment Verified 06/16/19 13:10 Sulfa (Sulfonamide Allergy Hives Verified 06/16/19 13:10 Antibiotics) triamcinolone Allergy Unknown Verified 06/16/19 13:10 Reaction Details CARROTS, CELERY, APPLES Allergy Mild Hives Uncoded 06/16/19 13:10 DIET SWEETNERS Allergy TONGUE Uncoded 06/16/19 13:10 NUMB, HEADACHE PMH/Surg Hx/FS Hx/Imm Hx - Additional Past Medical History Additional PMH: Pt is [place] and attempts to read lips. Previously Healthy: Yes Endocrine History: Diabetes Cardiovascular History: Cardiac Disease Cancer History: Other - pt unclear in description of type of cancer Other History Of: Negative For: HIV, Hepatitis B, Hepatitis C - Surgical History Surgical History: Yes Surgery Procedure, Year, and Place: BILATERAL TUBAL LIGATION,. CHOLECYSTECTOMY. APPENDECTOMY. BACK SURGURY X 6 (with implant), [facility]. LEFT HIP IMPLANT. RIGHT HAND CYSTECTOMY. HYSTERECTOMY, [facility] - Family History Known Family History: Positive: Cardiac Disease, Hypertension, Diabetes, Other - charcot betito tooth Family History: charcot betito tooth - Social History Occupation: Retired Lives: Alone Alcohol Use: None Substance Use Type: None Smoking Status (MU): Former Smoker Type: Cigarettes Amount Used/How Often: 1 1/2 PPD Length of Time of Smoking/Using Tobacco: 5 Years Have You Smoked in the Last Year: No When Did the Patient Quit Smoking/Using Tobacco: 2010 Household Exposure Type: Cigarettes - Immunization History Most Recent Influenza Vaccination: 2013 Vaccination Up to Date: Yes Review of Systems All Other Systems Reviewed And Are Negative: Yes Constitutional: Positive: Fever, Chills, Fatigue Skin: Positive: Negative Eyes: Positive: Negative ENT: Positive: Nasal Discharge, Sinus Congestion, Sinus Pain/Tenderness Respiratory: Positive: Cough Cardiovascular: Positive: Negative Gastrointestinal: Positive: Negative Genitourinary: Positive: Negative Motor: Positive: Negative Neurovascular: Positive: Negative Musculoskeletal: Positive: Negative, Myalgia Neurological: Positive: Headache Psychological: Positive: Negative Is Patient Immunocompromised?: No Physical Exam Triage Information Reviewed: Yes Appearance: Ill-Appearing, Other: - unkempt Vital Signs: Initial Vital Signs Temp 98.6 F 06/16/19 13:14 Pulse 107 06/16/19 13:14 Resp 18 06/16/19 13:14 BP 186/67 06/16/19 13:14 Pulse Ox 95 06/16/19 13:14 Vital Signs Reviewed: Yes Eye Exam: Normal ENT Exam: Normal ENT: Positive: Nasal congestion, Sinus tenderness Dental Exam: Normal - does not have teeth and is not wearing dentures Neck exam: Normal Respiratory: Positive: Normal breath sounds Cardiovascular: Positive: Tachycardia Musculoskeletal Exam: Normal Neurological Exam: Normal Psychological Exam: Normal Skin Exam: Normal Throat Pain/Nasal Course/Dx - Differential Dx/Diagnosis Differential Diagnosis/HQI/PQRI: Influenza, Pharyngitis, Sinusitis, Tonsillitis Provider Diagnosis: Sinusitis, Bronchitis Discharge ED - Sign-Out/Discharge Documenting (check all that apply): Patient Departure All imaging exams completed and their final reports reviewed: No Studies - Discharge Plan Condition: Stable Disposition: HOME Prescriptions: Fluconazole 150 MG TAB* [Diflucan 150 MG TAB*] 150 mg PO DAILY #2 tablet Sulfamethox/Trimethoprim DS* [Bactrim DS 800/160 TAB*] 1 tab PO Q12H #14 tab Patient Education Materials: Sinusitis (ED), Acute Bronchitis (ED) Referrals: Chris Aguilar MD [Primary Care Provider] - If Needed - Billing Disposition and Condition Condition: STABLE Disposition: Home - Attestation Statements Provider Attestation: Per institutional requirements, I have reviewed the chart, however, I was not consulted specifically or made aware of this patient by the midlevel provider. I did not personally evaluate, interact with , or disposition this patient.
== END 2019-06-16 14:11 | disposition home or self-care (01) ==
LOC: UCCORT 12:37
DX: J32.9 Chronic sinusitis, unspecified (principal); J40 Bronchitis, not specified as acute or chronic; E11.9 Type 2 diabetes mellitus without complications; Z88.1 Allergy status to other antibiotic agents; Z88.8 Allergy status to other drugs, medicaments and biological substances; Z88.0 Allergy status to penicillin; Z88.2 Allergy status to sulfonamides; Z91.018 Allergy to other foods; Z87.891 Personal history of nicotine dependence
CPT/HCPCS: 99212; G0463

== ENCOUNTER 2019-11-30 14:47 | Emergency (ER) | payer MEDICARE, MEDICAID ==
--- OUTSIDE RECORDS SUMMARY | 2019-11-30 14:58 | XMS REPORT | Continuity of Care Document ---
:1955 External Reference #:[id number] Author Name Ray Sanders DO MPH Address [address] [place] [address], [address] [place] [phone] Care Team Providers Name Role Phone Chris Aguilar M.D. - Family Care Team Information Fisher [employer]ing [phone] Medicine Matthew Bae M.D. - Family Medicine Care Team Information [employer] Problems Active Problems Provider Date Sprain of ligament of lumbosacral joint SandersRay oswald, DO, MPH Onset: 2003 Neuralgia SandersRay oswald, DO, MPH Onset: 04/04/2004 Spasm Sanders, Ray, DO, MPH Onset: 04/04/2004 Myalgia & Myositis Unspecified Sanders, Ray, DO, MPH Onset: 04/04/2004 Myalgia of auxiliary muscles, head and neck Sanders, Ray, DO, MPH Onset: Cervical somatic dysfunction SandersFeroz oswaldph, DO, MPH Onset: 09/28/2019 Long-term current use of opiate analgesic Sanders, Ray, DO, MPH Onset: 2019 drug Malaise and fatigue Sanders, Ray, DO, MPH Onset: 09/28/2019 Synovitis and tenosynovitis Sanders, Ray, DO, MPH Onset: 09/28/2019 Shoulder joint pain Sanders, Ray, DO, MPH Onset: 09/28/2019 Neck pain Sanders, Ray, DO, MPH Onset: 09/28/2019 Chronic postoperative pain Sanders, Ray, DO, MPH Onset: 09/28/2019 Social History Type Date Description Comments Sex Unknown Tobacco Use Start: Unknown Patient has never smoked Smoking Status Reviewed: 10/31/19 Patient has never smoked Allergies, Adverse Reactions, Alerts Active Allergies Reaction Severity Comments Date Aspirin 07/14/2005 Keflex 07/14/2005 Ibuprofen 07/14/2005 Sulfur 04/01/2010 Aleve 08/03/2012 Medications Active Medications SIG Qnty Indications Ordering Date Provider Miralax 1 scoop (17g) in 1Can Ray Sanders, 05/31/2019 Powder water by mouth DO, MPH every night as needed Morphine Sulfate ER si by mouth q12 60tabs Ray Sanders, 10/17/2016 30mg hours as directed DO, MPH Tablets ER chronic pain. Oxycodone HCL si by mouth 90tabs Ray Sanders, 10/09/2016 5mg Tablets every 8 hours as DO, MPH directed chronic pain patient Zanaflex si-2 by mouth 180tabs Ray Sanders, 07/14/2005 4mg Tablets three times a day DO, MPH as directed chronic pain patient Azelastine HCL (Nasal) 2 times a day for Unknown allergies 0.15% Solution Calcium Carbonate 1 by mouth three Unknown 600mg times daily Tablets Nystatin si-6 Unknown [id number]/ML milliliters four Suspension times a day as directed Clobetasol Propionate apply topical Unknown twice daily 0.05% Solution Magnesium Oxide 400 1 by mouth three Unknown 240mg times a day Packet Docusate Sodium si by mouth Unknown 100mg twice daily Tablets Atorvastatin Calcium 1 by mouth at Unknown 80mg bedtime Tablets Ranitidine HCL 2 by mouth at Unknown 150mg bedtime Tablets Calcium Ascorbate 1 by mouth daily Unknown 500mg Tablets Pregabalin 1 by mouth at Unknown 50mg Capsules bedtime Ciclodan use topical twice Unknown 8% Solution daily Humalog 44 units twice Unknown 100Unit/ML daily Solution Diphenhydramine HCL 1-2 every day for Unknown 25mg sinus pressure Capsules Lactobacillus Extra 1 by mouth twice a Unknown Strength day Capsules Nexium si by mouth Unknown 40mg Capsules DR every day as directed Incruse Ellipta 1 inhalation at Unknown bedtime 62.5mcg/Inh Aerosol Zyrtec Allergy 1 by mouth every Unknown 10mg day Tablets Metoprolol Succinate 1 by mouth every Unknown ER day 50mg Tablets ER 24HR Metolazone 1 by mouth daily Unknown 5mg Tablets Percocet si by mouth Breiman, 5-325mg Tablets every 8 hours Jane Perez chronic pain patient Losartan Potassium daily Unknown 50mg Tablets Alpha Lipoic Acid 1 by mouth every 8 Unknown 200mg hours Capsules Centrum si po qd Unknown Tablets Amlodipine Besylate Unknown 5mg Tablets Lasix 1 po qd Unknown 40mg Tablets Advair Diskus 1 inhalation bid, Unknown prn 250-50mcg/Dose Aerosol Albuterol Inhalation prn Unknown 17g Metformin HCL ER 2 by mouth twice a Unknown 500mg day every day Tablets ER 24HR Oxybutynin Chloride ER Breiman, Jane Perez 10mg Tablets ER 24HR Immunizations Description No Information Available Vital Signs Date Vital Result Comment 10/31/2019 10:17am BP Systolic 140 mmHg BP Diastolic 86 mmHg Heart Rate 82 /min Respiratory Rate 20 /min Height 63 inches 5'3" Weight 258.00 lb Pain Level 9 Pain at this time. Pain Level With Medicine 9 on average with meds Pain Level Without Medicine 9 without meds BMI (Body Mass Index) 45.7 kg/m2 09/28/2019 10:19am BP Systolic 140 mmHg BP Diastolic 86 mmHg Heart Rate 112 /min Respiratory Rate 22 /min Height 63 inches 5'3" Weight 257.00 lb O2 % BldC Oximetry 95 % Pain Level 8 Pain at this time. Pain Level With Medicine 7 on average with meds Pain Level Without Medicine 9 without meds Pain Level After Procedure 7 BP Systolic Recheck 138 mmHg Pulse:102 BP Diastolic Recheck 84 mmHg Pulse:102 BMI (Body Mass Index) 45.5 kg/m2 Results Description No Information Available Procedures Date Code Description Status 09/28/2019 74469 Omt 1-2 Body Regions Completed 09/28/2019 69502 Therapeutic, Prophylactic Or Diagnostic Injection Subq/Im Completed 09/28/2019 97360 Injection For Nerve Block, Suprascapular Nerve Completed 09/28/201955718 Injection, Single Or Mutiple Trigger Points One Or Two Completed Muscles 09/28/2019 Injection, Tendon Origin/Insertion Completed 08/29/2019 05428 Therapeutic, Prophylactic Or Diagnostic Injection Subq/Im Completed 07/28/2019 31132 Therapeutic, Prophylactic Or Diagnostic Injection Subq/Im Completed 07/28/2019 87386 Injection For Nerve Block, Suprascapular Nerve Completed 07/28/201902060 Injection, Single Or Mutiple Trigger Points One Or Two Completed Muscles 07/28/201921724 Injection, Tendon Origin/Insertion Completed 07/28/201964710 Inject Tendon/Ligament Completed 06/29/2019 Injection, Single Or Mutiple Trigger Points One Or Two Completed Muscles 05/02/2019 18747 Therapeutic, Prophylactic Or Diagnostic Injection Subq/Im Completed Medical Devices Description No Information Available Encounters Type Date Location Provider Dx Diagnosis Office Visit 09/28/2019 Main Office as Ray Sanders G89.28 Other chronic 10:15a Of 10/08/13 DO, MPH postprocedural pain M54.2 Cervicalgia M99.01 Segmental and somatic dysfunction of cervical region M79.12 Myalgia of auxiliary muscles, head and neck M25.511 Pain in right shoulder M65.88 Other synovitis and tenosynovitis, other site R53.83 Other fatigue Z79.891 care home (current) use of opiate analgesic Z13.31 Encounter for screening for depression Office Visit 08/29/2019 10:30a Main Office Ray Sanders G89.28 Other chronic as Of 10/08/13 DO, MPH postprocedural pain M54.2 Cervicalgia M79.12 Myalgia of auxiliary muscles, head and neck R53.83 Other fatigue Z79.891 care home (current) use of opiate analgesic Office Visit 07/28/2019 10:45a Main Office Ray Sanders G89.28 Other chronic as Of 10/08/13 DO, MPH postprocedural pain M54.2 Cervicalgia M65.88 Other synovitis and tenosynovitis, other site M46.02 Spinal enthesopathy, cervical region M79.12 Myalgia of auxiliary muscles, head and neck 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 R53.83 Other fatigue Office Visit 06/29/2019 10:15a Main Office SandersRay oswald, G89.28 Other chronic as Of 10/08/13 DO, MPH postprocedural pain M54.2 Cervicalgia M79.12 Myalgia of auxiliary muscles, head and neck 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 Office Visit 05/31/2019 10:15a Main Office SandersRay oswald, G89.28 Other chronic as Of 10/08/13 DO, MPH postprocedural pain M54.2 Cervicalgia M25.511 Pain in right shoulder M79.12 Myalgia of auxiliary muscles, head and neck 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 Z63.79 Other stressful life events affecting family and household Office Visit 05/02/2019 11:00a Main Office Ray Sanders, G89.28 Other chronic as Of 10/08/13 DO, MPH postprocedural pain M54.2 Cervicalgia M25.511 Pain in right shoulder M79.12 Myalgia of auxiliary muscles, head and neck R53.83 Other fatigue Z79.891 care home (current) use of opiate analgesic Assessments Date Code Description Provider 10/31/2019 G89.28 Other chronic postprocedural pain SandersRay oswald DO, MPH 10/31/2019 M54.2 Cervicalgia SandersRay oswald DO, MPH 10/31/2019 M25.511 Pain in right shoulder SandersRay oswald DO, MPH 10/31/2019 M79.12 Myalgia of auxiliary muscles, head and neck SandersRay oswald, DO, MPH 10/31/2019 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 Tommy Ray , DO, MPH 10/31/2019 R53.83 Other fatigue SandersFeroz oswaldph DO, MPH 09/28/2019 G89.28 Other chronic postprocedural pain Sanders, Ray, DO, MPH 09/28/2019 M54.2 Cervicalgia Sanders, Ray, DO, MPH 09/28/2019 M99.01 Segmental and somatic dysfunction of Sanders, Ray, DO, MPH cervical region 09/28/2019 M79.12 Myalgia of auxiliary muscles, head and neck Sanders, Ray, DO, MPH 09/28/2019 M25.511 Pain in right shoulder Sanders, Ray, DO, MPH 09/28/2019 M65.88 Other synovitis and tenosynovitis, other Sanders, Ray, DO , MPH site 09/28/2019 R53.83 Other fatigue Sanders, Ray, DO, MPH 09/28/2019 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 Sanders, Ray , DO, MPH 09/28/2019 Z13.31 Encounter for screening for depression Sanders, Ray, DO, MPH 08/29/2019 G89.28 Other chronic postprocedural pain Sanders, Ray, DO, MPH 08/29/2019 M54.2 Cervicalgia Sanders, Ray, DO, MPH 08/29/2019 M79.12 Myalgia of auxiliary muscles, head and neck Sanders, Ray, DO, MPH 08/29/2019 R53.83 Other fatigue Sanders, Ray, DO, MPH 08/29/2019 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 Sanders, Ray , DO, MPH 07/28/2019 G89.28 Other chronic postprocedural pain Sanders, Ray, DO, MPH 07/28/2019 M54.2 Cervicalgia Sanders, Ray, DO, MPH 07/28/2019 M65.88 Other synovitis and tenosynovitis, other Sanders, Ray, DO , MPH site 07/28/2019 M46.02 Spinal enthesopathy, cervical region Sanders, Ray, DO, MPH 07/28/2019 M79.12 Myalgia of auxiliary muscles, head and neck Sanders, Ray, DO, MPH 07/28/2019 Z79.891 care home (current) use of opiate analgesic Sanders, Ray , DO, MPH 07/28/2019 R53.83 Other fatigue Sanders, Ray, DO, MPH 06/29/2019 G89.28 Other chronic postprocedural pain Sanders, Ray, DO, MPH 06/29/2019 M54.2 Cervicalgia Sanders, Ray, DO, MPH 06/29/2019 M79.12 Myalgia of auxiliary muscles, head and neck Sanders, Ray, DO, MPH 06/29/2019 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 Sanders, Ray , DO, MPH 05/31/2019 G89.28 Other chronic postprocedural pain Sanders, Ray, DO, MPH 05/31/2019 M54.2 Cervicalgia Sanders, Ray, DO, MPH 05/31/2019 M25.511 Pain in right shoulder Sanders, Ray, DO, MPH 05/31/2019 M79.12 Myalgia of auxiliary muscles, head and neck Sanders, Ray, DO, MPH 05/31/2019 Z79.891 care home (current) use of opiate analgesic Sanders, Ray , DO, MPH 05/31/2019 Z63.79 Other stressful life events affecting family Sanders, Ray , DO, MPH and household 05/02/2019 G89.28 Other chronic postprocedural pain Sanders, Ray, DO, MPH 05/02/2019 M54.2 Cervicalgia Sanders, Ray, DO, MPH 05/02/2019 M25.511 Pain in right shoulder Sanders, Ray, DO, MPH 05/02/2019 M79.12 Myalgia of auxiliary muscles, head and neck Sanders, Ray, DO, MPH 05/02/2019 R53.83 Other fatigue Sanders, Ray, DO, MPH 05/02/2019 Z79.891 care home (current) use of opiate analgesic Sanders, Ray , DO, MPH Plan of Treatment Future Appointment(s):11/29/2019 11:15 am - Ray Sanders DO, MPH at Main Office as Of 10/08/1401 - SandersFeroz oswaldph, DO, MPHG89.28 Other chronic postprocedural painComments:Chronic. Symptoms and complaints discussed and reviewed today. No significant changes in physical findings. Continue current medical pain management.M54.2 CervicalgiaComments:Chronic. Symptoms and complaints discussed and reviewed today. No significant changes in physical findings. Continue current medical pain management.M25.511 Pain in right shoulderComments:Chronic. Symptoms and complaints discussed and reviewed today. No significant changes in physical findings. Continue current medical pain management.M79.12 Myalgia of auxiliary muscles, head and neckComments:Chronic. Symptoms and complaints discussed and reviewed today. No significant changes in physical findings. Continue current medical pain management.Z79.891 care home ( current) use of opiate analgesicNew Labs:Urine Drug Screen, Ordered: Comments:Urine drug screen sample taken today to monitor opiate use and to monitor use of illicit substances.Will discuss results at next appointment.The following tests were ordered:6 AM, AMPH, DAWSON, DANA, BUP, CARIS, COCM, ETG, FENT , MCSHSG, OPI, OXY, PCP, TAPEN, XTSY, ZOLP. A urine drug test (UDT) was ordered for this patient and collected on site today. Creatinine has been ordered as well for specimen validity, not for kidney function. Preliminary UDT results are not final and should not be used to determine patient care or plan of treatment. Initially a qualitative immunoassay screen will bedone. Any inconsistent or positive findings will be further tested with a more comprehensive quantitative confirmation LCMS study. It is part of the treatment process of prescribing controlled substances and is considered standard of care.R53.83 Other fatigueComments:Symptoms and complaints discussed and reviewed today. No significant changes in physical findings. Continue current medical pain management. B12 injection administered after patient evaluated. 1ml IM for fatigue. (See Consent for injection-B12 document for lot number and expiration date.)AllComments:Continue current medical pain management; injection therapy, osteopathic manipulation, PT / modalities, and consults as needed to manage chronic pain.Non - opioid pain management discussed and optionsdiscussed.Side effects discussed; anticipatory guidance given. Patient clearly understand and agree with all medical treatments and suggestions. All medicines prescribed are adequate and appropriate for this patient's complaint of pain, medical history, physical, and personal goals.Goals of Treatment are to provide adequate and appropriate multidisciplinary medical pain management to increase/ maintain patient's quality of life and functionality while maintaining satisfactory side effect profile andminimizing snf end-organ damage. Importance of regular nutrition throughout the day discussed.Activity as toleratedContinue with PCP Functional Status Description No Information Available Mental Status Description No Information Available Referrals Description No Information Available
--- OUTSIDE RECORDS SUMMARY | 2019-11-30 14:58 | XMS REPORT | Continuity of Care Document ---
:1955 External Reference #:[id number] Author Name Ray Sanders DO MPH Address [address] [place] [address], [address] [place] [phone] Care Team Providers Name Role Phone Chris Aguilar M.D. - Family Care Team Information Health And Wellness Coach Medicine Matthew Bae M.D. - Family Medicine Care Team Information Health And Wellness Coach Problems Active Problems Provider Date Sprain of ligament of lumbosacral joint SandersRay oswald, DO, MPH Onset: 2003 Neuralgia SandersRay oswald, DO, MPH Onset: 04/04/2004 Spasm Sanders, Ray, DO, MPH Onset: 04/04/2004 Myalgia & Myositis Unspecified Sanedrs, Ray, DO, MPH Onset: 04/04/2004 Myalgia of [...] Patient has never smoked Smoking Status Reviewed: 09/28/19 Patient has never smoked Allergies, Adverse Reactions, [...] 600mg times daily Tablets Nystatin si-6 Unknown [id number]/ML milliliters four Suspension times a day as [...] ER 24HR Oxybutynin Chloride ER Breiman, Jane Peerz 10mg Tablets ER 24HR Immunizations Description No Information Available Vital Signs Date Vital Result Comment 09/28/2019 10:19am BP Systolic 140 mmHg BP [...] Pulse:102 BMI (Body Mass Index) 45.5 kg/m2 08/29/2019 10:27am BP Systolic 136 mmHg BP Diastolic 88 mmHg Heart Rate 92 /min Respiratory Rate 20 /min Height 63 inches 5'3" Weight 255.00 lb O2 % BldC Oximetry 96 % Oxygen 2L NC Pain Level 6 Pain at this time. Pain Level With Medicine 5 on average with meds Pain Level Without Medicine 9 without meds BMI (Body Mass Index) 45.2 kg/m2 Results Description No Information Available Procedures Date Code Description Status 08/29/2019 50561 Therapeutic, Prophylactic Or Diagnostic Injection Subq/Im Completed 07/28/2019 52162 Therapeutic, Prophylactic Or Diagnostic Injection Subq/Im Completed 07/28/2019 85539 Injection For Nerve Block, Suprascapular Nerve Completed 07/28/2019 Injection, Single Or Mutiple Trigger Points One Or Two Completed Muscles 07/28/2019 Injection, Tendon Origin/Insertion Completed 07/28/2019 Inject Tendon/Ligament Completed 06/29/2019 Injection, Single Or Mutiple Trigger Points One Or Two Completed Muscles 05/02/2019 10946 Therapeutic, Prophylactic Or Diagnostic Injection Subq/Im Completed Medical Devices Description No Information Available Encounters Type Date Location Provider Dx Diagnosis Office Visit 08/29/2019 Main Office as Ray Sanders G89.28 Other chronic 10:30a Of 10/08/13 DO, MPH postprocedural pain M54.2 Cervicalgia M79.12 Myalgia of auxiliary muscles, head and neck R53.83 Other fatigue 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 Office Visit 07/28/2019 10:45a Main Office Ray Sanders G89.28 Other chronic as Of 10/08/13 DO, MPH postprocedural pain M54.2 Cervicalgia M65.88 Other synovitis and tenosynovitis, other site M46.02 Spinal enthesopathy, cervical region M79.12 Myalgia of auxiliary muscles, head and neck 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 R53.83 Other fatigue Office Visit 06/29/2019 10:15a Main Office Ray Sanders G89.28 Other chronic as Of 10/08/13 DO, MPH postprocedural pain M54.2 Cervicalgia M79.12 Myalgia of auxiliary muscles, head and neck 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 Office Visit 05/31/2019 10:15a Main Office Ray Sanders G89.28 Other chronic as Of 10/08/13 DO, MPH postprocedural pain M54.2 Cervicalgia M25.511 Pain in right shoulder M79.12 Myalgia of auxiliary muscles, head and neck 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 Z63.79 Other stressful life events affecting family and household Office Visit 05/02/2019 11:00a Main Office Ray Sanders, G89.28 Other chronic as Of 10/08/13 DO, MPH postprocedural pain M54.2 Cervicalgia M25.511 Pain in right shoulder M79.12 Myalgia of auxiliary muscles, head and neck R53.83 Other fatigue Z79.891 alf (current) use of opiate analgesic Assessments Date Code Description Provider 09/28/2019 G89.28 Other chronic postprocedural pain Sanders, Ray, DO, MPH 09/28/2019 M54.2 Cervicalgia Sanders, Ray, DO, MPH 09/28/2019 M99.01 Segmental and somatic dysfunction of SandersRay oswald, DO, MPH cervical region 09/28/2019 M79.12 Myalgia of auxiliary muscles, head and neck Sanders, Ray DO, MPH 09/28/2019 M25.511 Pain in right shoulder Sanders, Ray, DO, MPH 09/28/2019 M65.88 Other synovitis and tenosynovitis, other Sanders, Ray, DO , MPH site 09/28/2019 R53.83 Other fatigue Sanders, Ray, DO, MPH 09/28/2019 Z79.891 alf (current) use of opiate analgesic Sanders, Ray , DO, MPH 08/29/2019 G89.28 Other chronic postprocedural pain Sanders, Ray, DO, MPH 08/29/2019 M54.2 Cervicalgia Sanders, Ray, DO, MPH 08/29/2019 M79.12 Myalgia of auxiliary muscles, head and neck Sanders, Ray, DO, MPH 08/29/2019 R53.83 Other fatigue Sanders, Ray, DO, MPH 08/29/2019 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 Sanders, Ray [...] neck Sanders, Ray, DO, MPH 07/28/2019 Z79.891 alf (current) use of opiate analgesic Sanders, Ray , DO, MPH 07/28/2019 R53.83 Other fatigue Sanders, Ray, DO, MPH 06/29/2019 G89.28 Other chronic postprocedural pain Sanders, Ray, DO, MPH 06/29/2019 M54.2 Cervicalgia Sanders, Ray, DO, MPH 06/29/2019 M79.12 Myalgia of auxiliary muscles, head and neck Sanders, Ray, DO, MPH 06/29/2019 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 Sanders, Ray , DO, MPH 05/31/2019 G89.28 Other chronic postprocedural pain Sanders, Ray, DO, MPH 05/31/2019 M54.2 Cervicalgia Sanders, Ray, DO, MPH 05/31/2019 M25.511 Pain in right shoulder Sanders, Ray, DO, MPH 05/31/2019 M79.12 Myalgia of auxiliary muscles, head and neck Sanders, Ray, DO, MPH 05/31/2019 Z79.891 alf (current) use of opiate analgesic Sanders, Ray [...] Ray, DO, MPH 05/02/2019 R53.83 Other fatigue Ray Sanders DO, MPH 05/02/2019 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 Symptoms and complaints discussed and reviewed today. No significant changes in physical findings. Continue current medical pain management.M54.2 CervicalgiaComments:Chronic. Symptoms and complaints discussed and reviewed today. Physical findings warrant injection therapy. Continue current medical pain management. Injection therapy performed today. Informed consentgiven/refusal reviewed. See procedure sheet. Injection therapy will lower this patient's pain, increase ROM improve functionality and mitigate the need for increased medication.M99.01 Segmental and somatic dysfunction of cervical regionComments:Chronic. Symptoms and complaints discussed and reviewed today. Somatic dysfunctions noted warrantingOMT. Continue current medical pain management and OMT. [id number]. OMT performed.M79.12 Myalgia of auxiliary muscles, head and neckComments:Symptoms and complaints discussed and reviewed today. Physical findings reviewed and warrant intervention. Injection therapy today - Trigger Point injections. Informed consent given/refusal reviewed. See procedure sheet.M25.511 Pain in right shoulderComments:Chronic. Symptoms and complaints discussed and reviewed today. No significant changes in physical findings. Continue current medical pain management.M65.88 Other synovitis and tenosynovitis, other siteComments: Chronic. Symptoms and complaints discussed and reviewed today. Physical findings reviewed and warrant intervention. Continue current medical pain management. Injection therapy today - tendon i/o. Informed consent given/ refusal reviewed. See procedure sheet.R53.83 Other fatigueComments:Symptoms and complaints discussed and reviewed today. No significant changes in physical findings. Continue current medical pain management. B12 injection administered after patient evaluated. 1ml IM for fatigue. (See Consent for injection-B12 document for lot number and expiration date.)Z79.891 alf ( current) use of opiate analgesicNew Labs:Urine [...] controlled substances and is considered standard of care.AllComments:Continue current medical pain management; injection therapy, osteopathic [...] while maintaining satisfactory side effect profile andminimizing detention end-organ damage. Importance of regular nutrition throughout the day discussed.Activity as toleratedContinue with PCP Functional Status Description No Information Available Mental Status Description No Information Available Referrals Description No Information Available
--- OUTSIDE RECORDS SUMMARY | 2019-11-30 14:58 | XMS REPORT | Continuity of Care Document ---
:1955 External Reference #:[id number] Author Name Ray Sanders DO, MPH (transmitted by agent of provider Safia Stevens) Address [address] [place] [address], [address] [address] Care Team Providers Name Role Phone Chris Aguilar M.D. - Family Care Team Information Warp Changer [phone] Medicine Matthew Bae M.D. - Family Medicine Care Team Information Warp Changer Problems Active Problems Provider Date Sprain of ligament of lumbosacral joint SandersFeroz oswaldph, DO, MPH Onset: 2003 Neuralgia Sanders, Ray, DO, MPH Onset: 04/04/2004 Spasm Sanders, Ray, DO, MPH Onset: 04/04/2004 Myalgia & Myositis Unspecified Sanders, Ray, DO, MPH Onset: 04/04/2004 Myalgia of auxiliary muscles, head and neck Sanders, Ray, DO, MPH Onset: Cervical somatic dysfunction Sanders, Ray, DO, MPH Onset: 09/28/2019 Long-term current use of opiate analgesic Sanders Ray, DO, MPH Onset: 2019 drug Malaise [...] Patient has never smoked Smoking Status Reviewed: 11/29/19 Patient has never smoked Allergies, Adverse Reactions, Alerts Active Allergies Reaction Severity Comments Date Aspirin 07/14/2005 Keflex 07/14/2005 Ibuprofen 07/14/2005 Sulfur 04/01/2010 Aleve 08/03/2012 Medications Active Medications SIG Qnty Indications Ordering Date Provider Miralax 1 scoop (17g) in 1Can Ray Snaders, 05/31/2019 Powder water by mouth DO, MPH [...] 600mg times daily Tablets Nystatin si-6 Unknown [id number] milliliters four Suspension times a day as [...] Available Vital Signs Date Vital Result Comment 11/29/2019 10:28am BP Systolic 142 mmHg BP Diastolic 88 mmHg Heart Rate 120 /min Respiratory Rate 20 /min Height 63 inches 5'3" Weight 257.00 lb Pain Level 9 Pain at this time. Pain Level With Medicine 8 on average with meds Pain Level Without Medicine 9 without meds BMI (Body Mass Index) 45.5 kg/m2 10/31/2019 10:17am BP Systolic 140 mmHg BP Diastolic 86 mmHg Heart Rate 82 /min Respiratory Rate 20 /min Height 63 inches 5'3" Weight 258.00 lb Pain Level 9 Pain at this time. Pain Level With Medicine 9 on average with meds Pain Level Without Medicine 9 without meds BMI (Body Mass Index) 45.7 kg/m2 Results Description No Information Available Procedures Date Code Description Status 10/31/2019 35518 Therapeutic, Prophylactic Or Diagnostic Injection Subq/Im Completed 09/28/2019 73568 Omt 1-2 Body Regions Completed 09/28/2019 32691 Therapeutic, Prophylactic Or Diagnostic Injection Subq/Im Completed 09/28/2019 73356 Injection For Nerve Block, Suprascapular Nerve Completed 09/28/201926097 Injection, Single Or Mutiple Trigger Points One Or Two Completed Muscles 09/28/2019 Injection, Tendon Origin/Insertion Completed 08/29/2019 52831 Therapeutic, Prophylactic Or Diagnostic Injection Subq/Im Completed 07/28/2019 10088 Therapeutic, Prophylactic Or Diagnostic Injection Subq/Im Completed 07/28/2019 51485 Injection For Nerve Block, Suprascapular Nerve Completed 07/28/201999942 Injection, Single Or Mutiple Trigger Points One Or Two Completed Muscles 07/28/201981317 Injection, Tendon Origin/Insertion Completed 07/28/201915109 Inject Tendon/Ligament Completed 06/29/2019 Injection, Single Or Mutiple Trigger Points One Or Two Completed Muscles Medical Devices Description No Information Available Encounters Type Date Location Provider Dx Diagnosis Office Visit 10/31/2019 Main Office as Ray Sanders G89.28 Other chronic 10:15a Of 10/08/13 DO, MPH postprocedural pain M54.2 Cervicalgia M25.511 Pain in right shoulder M79.12 Myalgia of auxiliary muscles, head and neck Z79.891 [employer] (current) use of opiate analgesic R53.83 Other fatigue Office Visit 09/28/2019 10:15a Main Office Ray Sanders G89.28 Other chronic as Of 10/08/13 DO, MPH postprocedural pain M54.2 Cervicalgia M99.01 Segmental and somatic dysfunction of cervical region M79.12 Myalgia of auxiliary muscles, head and neck M25.511 Pain in right shoulder M65.88 Other synovitis and tenosynovitis, other site R53.83 Other fatigue Z79.891 detention (current) use of opiate analgesic Z13.31 Encounter for screening for depression Office Visit 08/29/2019 10:30a Main Office Ray Sanders G89.28 Other chronic as Of 10/08/13 DO, MPH postprocedural pain M54.2 Cervicalgia M79.12 Myalgia of auxiliary muscles, head and neck R53.83 Other fatigue Z79.891 detention (current) use of opiate analgesic Office Visit 07/28/2019 10:45a Main Office Sanders, Ray, G89.28 Other chronic as Of 10/08/13 DO, MPH postprocedural pain M54.2 Cervicalgia M65.88 Other synovitis and tenosynovitis, other site M46.02 Spinal enthesopathy, cervical region M79.12 Myalgia of auxiliary muscles, head and neck Z79.891 [employer] (current) use of opiate analgesic R53.83 Other fatigue Office Visit 06/29/2019 10:15a Main Office Sanders, Ray, G89.28 Other chronic as Of 10/08/13 DO, MPH postprocedural pain M54.2 Cervicalgia M79.12 Myalgia of auxiliary muscles, head and neck Z79.891 detention (current) use of opiate analgesic Assessments Date Code Description Provider 10/31/2019 G89.28 Other chronic postprocedural pain Sanders, Ray, DO, MPH 10/31/2019 M54.2 Cervicalgia Sanders, Ray, DO, MPH 10/31/2019 M25.511 Pain in right shoulder Sanders, Ray, DO, MPH 10/31/2019 M79.12 Myalgia of auxiliary muscles, head and neck Sanders, Ray, DO, MPH 10/31/2019 Z79.891 detention (current) use of opiate analgesic Sanders, Ray , DO, MPH 10/31/2019 R53.83 Other fatigue Sanders, Ray, DO, MPH 09/28/2019 G89.28 Other chronic postprocedural [...] fatigue Sanders, Ray, DO, MPH 09/28/2019 Z79.891 detention (current) use of opiate analgesic Sanders, Ray , DO, MPH 09/28/2019 Z13.31 Encounter for screening for depression Sanders, Ray, DO, MPH 08/29/2019 G89.28 Other chronic postprocedural pain Sanders, Ray, DO, MPH 08/29/2019 M54.2 Cervicalgia Sanders, Ray, DO, MPH 08/29/2019 M79.12 Myalgia of auxiliary muscles, head and neck Sanders, Ray, DO, MPH 08/29/2019 R53.83 Other fatigue Sanders, Ray, DO, MPH 08/29/2019 Z79.891 [employer] (current) use of opiate analgesic Sanders, Ray [...] neck Sanders, Ray, DO, MPH 07/28/2019 Z79.891 [employer] (current) use of opiate analgesic Sanders, Ray , DO, MPH 07/28/2019 R53.83 Other fatigue Sanders, Ray, DO, MPH 06/29/2019 G89.28 Other chronic postprocedural pain Sanders, Ray, DO, MPH 06/29/2019 M54.2 Cervicalgia Sanders, Ray, DO, MPH 06/29/2019 M79.12 Myalgia of auxiliary muscles, head and neck Sanders, Ray, DO, MPH 06/29/2019 Z79.891 [employer] (current) use of opiate analgesic Sanders, Ray , DO, MPH Plan of Treatment Future Appointment(s):12/30/2019 11:00 am - Ray Sanders DO, MPH at Main Office as Of 10/08/1402 - Ray Sanders DO, MPHAllComments:Continue current medical pain management; injection therapy, osteopathic [...] while maintaining satisfactory side effect profile andminimizing residential end-organ damage. Importance of regular nutrition throughout the day discussed.Activity as toleratedContinue with PCP Functional Status Description No Information Available Mental Status Description No Information Available Referrals Description No Information Available
[2019-11-30 15:02] VITALS: BP 150/72
--- NOTE | 2019-11-30 15:22 | UC ---
Ear Complaint HPI - HPI Summary HPI Summary: Pt c/o of pain in right ear with hearing aid use. Pt denies injury or drainage. Pt states that when she wears her hearing aids and is concerned that she has a skin infection in her right ear. - History of Current Complaint Chief Complaint: UCEar Stated Complaint: EAR COMPLAINT Time Seen by Provider: 11/30/19 15:15 Hx Obtained From: Patient Hx Last Menstrual Period: NA ?: No Onset/Duration: Gradual Onset, Lasting Days, Still Present Severity Initially: Mild Severity Currently: Mild Pain Intensity: 3 Associated Signs/Symptoms: Positive: Hearing Loss - pt wears hearng aids - Allergies/Home Medications Allergies/Adverse Reactions: Allergies Allergy/AdvReac Type Severity Reaction Status Date / Time nitrofurantoin Allergy Unknown Unknown Verified 11/30/19 15:02 [From Macrodantin] Reaction Details aspirin Allergy Hives Verified 11/30/19 15:02 cephalexin Allergy Hives Verified 11/30/19 15:02 clavulanic acid Allergy Hives Verified 11/30/19 15:02 [From Augmentin] erythromycin base Allergy SOB, HIVES Verified 11/30/19 15:02 ibuprofen Allergy Hives Verified 11/30/19 15:02 pregabalin [From Lyrica] Allergy See Comment Verified 11/30/19 15:02 Sulfa (Sulfonamide Allergy Hives Verified 11/30/19 15:02 Antibiotics) triamcinolone Allergy Unknown Verified 11/30/19 15:02 Reaction Details CARROTS, CELERY, APPLES Allergy Mild Hives Uncoded 11/30/19 15:02 DIET SWEETNERS Allergy TONGUE Uncoded 11/30/19 15:02 NUMB, HEADACHE Home Medications: Home Medications Amlodipine Besylate [Norvasc] 10 mg PO DAILY 01/16/19 [History Confirmed ] Ascorbate Calcium [Calcium Ascorbate] 1,000 mg PO DAILY 01/16/19 [History Confirmed 11/30/19] Atorvastatin* [Lipitor 80 MG*] 80 mg PO QPM 01/16/19 [History Confirmed 11/30/19 ] Azelastine 0.15% NASAL(NF) [Astepro 0.15% NASAL (NF)] 1 spray NASAL BID [History Confirmed 11/30/19] Calcium Carbonate [Super Calcium] 600 mg PO TID 01/16/19 [History Confirmed ] Cetirizine HCl [Zyrtec] 10 mg PO DAILY 01/16/19 [History Confirmed 11/30/19] Docusate Sodium [Colace] 100 mg PO BID 01/16/19 [History Confirmed 11/30/19] Esomeprazole Magnesium [Nexium] 40 mg PO DAILY 01/16/19 [History Confirmed 11/29] Fluticasone-Salmeterol 250-50* [Advair Diskus 250-50*] 1 puff INH BID 01/16/19 [ History Confirmed 11/30/19] Furosemide [Lasix] 40 mg PO BID 01/16/19 [History Confirmed 11/30/19] Insulin Glargine,Hum.rec.anlog [Basaglar Kwikpen 100 inuts/ml 3 ml x 5 Pens] 44 unit SQ BID 01/16/19 [History Confirmed 11/30/19] L. Acidophilus/Lactobac Spor [Acidophilus X-Str Captab] 1 tab PO BID 01/16/19 [ History Confirmed 11/30/19] Magnesium Oxide 400 mg PO TID 01/16/19 [History Confirmed 11/30/19] Metformin HCl 500 mg PO QID 01/16/19 [History Confirmed 11/30/19] Metoprolol Succinate 50 mg PO DAILY 01/16/19 [History Confirmed 11/30/19] Morphine Sulfate [Morphine Sulfate ER] 30 mg PO BID 01/16/19 [History Confirmed 11/30/19] Multivitamin [Multivitamins] 1 each PO DAILY 01/16/19 [History Confirmed ] Nystatin 1 pow TOPICAL BID 01/16/19 [History Confirmed 11/30/19] Oxybutynin XL TAB* [Ditropan XL TAB*] 10 mg PO QPM 01/16/19 [History Confirmed 11/30/19] Oxycodone HCl 5 mg PO TID 01/16/19 [History Confirmed 11/30/19] Pregabalin [Lyrica] 50 mg PO BEDTIME 01/16/19 [History Confirmed 11/30/19] Tizanidine HCl [Zanaflex] 8 mg PO TID 01/16/19 [History Confirmed 11/30/19] diPHENhydraMINE PO* [Benadryl PO 25 MG TAB*] 25 mg PO Q6H PRN 01/16/19 [History Confirmed 11/30/19] metOLazone [Metolazone] 5 mg PO DAILY PRN 01/16/19 [History Confirmed 11/30/19] raNITIdine HCl [Zantac] 300 mg PO BEDTIME 01/16/19 [History Confirmed 11/30/19] Losartan TAB* [Cozaar TAB*] 50 mg PO DAILY 11/30/19 [History Confirmed 11/30/19] PMH/Surg Hx/FS Hx/Imm Hx Previously Healthy: Yes Endocrine History: Diabetes, Dyslipidemia Cardiovascular History: Cardiac Disease, Hypertension Other History Of: Negative For: HIV, Hepatitis B, Hepatitis C - Surgical History Surgical History: Yes Surgery Procedure, Year, and Place: BILATERAL TUBAL LIGATION,. CHOLECYSTECTOMY. APPENDECTOMY. BACK SURGURY X 6 (with implant), [facility]. LEFT HIP IMPLANT. RIGHT HAND CYSTECTOMY. HYSTERECTOMY, [facility] - Family History Known Family History: Positive: Cardiac Disease, Hypertension, Diabetes, Other - charcot betito tooth Family History: charcot betito tooth - Social History Occupation: Disabled Lives: With Family Alcohol Use: None Substance Use Type: None Smoking Status (MU): Former Smoker Type: Cigarettes Amount Used/How Often: 1 1/2 PPD Length of Time of Smoking/Using Tobacco: 5 Years Have You Smoked in the Last Year: No When Did the Patient Quit Smoking/Using Tobacco: 2010 Household Exposure Type: Cigarettes - Immunization History Most Recent Influenza Vaccination: 2013 Vaccination Up to Date: Yes Review of Systems All Other Systems Reviewed And Are Negative: Yes Constitutional: Positive: Negative Skin: Positive: Negative Eyes: Positive: Negative ENT: Positive: Ear Ache - right ear pain with use of hearing aid Respiratory: Positive: Negative Cardiovascular: Positive: Negative Gastrointestinal: Positive: Negative Genitourinary: Positive: Negative Motor: Positive: Negative Neurovascular: Positive: Negative Musculoskeletal: Positive: Negative Neurological/Mental Status: Positive: Negative Psychological: Positive: Negative Is Patient Immunocompromised?: No Physical Exam Triage Information Reviewed: Yes Completion Of Physical Exam Limited Due To: Other - pt is HOON[place] Appearance: Well-Appearing Vital Signs: Initial Vital Signs Temp 98.0 F 11/30/19 15:00 Pulse 91 11/30/19 15:00 Resp 18 11/30/19 15:00 BP 150/72 03/25/20 15:00 Pulse Ox 97 11/30/19 15:00 Vital Signs Reviewed: Yes Eye Exam: Normal ENT: Positive: Other - right inner ear just before ear cannal, mild erythema no discharge or open wound Neck: Positive: Supple Respiratory: Positive: No respiratory distress Musculoskeletal Exam: Normal Neurological Exam: Normal Psychological Exam: Normal Skin Exam: Other - mild erytheam in right ear Ear Complaint Course/Dx - Differential Dx/Diagnosis Differential Diagnosis/HQI/PQRI: Cellulitis Provider Diagnosis: Skin irritation, Ear ache Discharge ED - Sign-Out/Discharge Documenting (check all that apply): Patient Departure All imaging exams completed and their final reports reviewed: No Studies - Discharge Plan Condition: Stable Disposition: HOME Patient Education Materials: Earache (ED) Referrals: Chris Aguilar MD [Primary Care Provider] - If Needed Additional Instructions: Apply a thin layer of a lubricant to they inside of your ear or directly to the hearing aid. Please check with the cigar wrapper or with your sales agent to make sure this will not harm the hearing aid. - Billing Disposition and Condition Condition: STABLE Disposition: Home - Attestation Statements Provider Attestation: This patient was not seen by me. I was available for consult. Chart reviewed. [email or web address]
== END 2019-11-30 15:30 | disposition home or self-care (01) ==
LOC: UCCORT 14:47
DX: H92.01 Otalgia, right ear (principal); L30.9 Dermatitis, unspecified; E11.9 Type 2 diabetes mellitus without complications; Z79.4 Long term (current) use of insulin; Z79.84 Long term (current) use of oral hypoglycemic drugs; E78.5 Hyperlipidemia, unspecified; I10 Essential (primary) hypertension; Z79.899 Other long term (current) drug therapy; Z88.6 Allergy status to analgesic agent; Z88.1 Allergy status to other antibiotic agents; Z88.2 Allergy status to sulfonamides; Z88.8 Allergy status to other drugs, medicaments and biological substances; Z91.018 Allergy to other foods; Z87.891 Personal history of nicotine dependence
CPT/HCPCS: 99211; G0463